=== PATIENT | male | born 1990 | race Asian ===

== ENCOUNTER 2017-05-27 15:46 | Emergency (ER) | payer SELFPAY ==
--- NOTE | 2017-05-27 18:53 | RAD ---
Indication: RIGHT ankle pain following twisting injury. Negative for deformity. Comparison: No relevant prior exams available on the [facility] [facility] [place]. Technique: AP, mortise, and lateral views RIGHT ankle. Report: Mild soft tissue swelling over the lateral malleolus. Negative for fracture or malalignment. Linear calcification at the level of the posterior crossing tendons and myotendinous junctions likely the flexor hallucis longus of doubtful acute significance. IMPRESSION: Lateral soft tissue swelling without fracture or malalignment. Consider lateral supporting ligament sprain.
[2017-05-27 20:11] VITALS: BP 137/72
--- NOTE | 2017-05-27 20:56 | ED ---
Lower Extremity - HPI Summary HPI Summary: Patient presents to the ED with CC of right ankle pain after falling earlier today. He has been ambulating but with pain. Limited communication d/t language barrier. He states he fell but is unsure how he landed. Denies hitting his head or LOC. Pain is located on the lateral portion of the right ankle and radiates to to the foot. Swelling noted. Denies numbness, tingling, temperature or color changes to the area.Pulses +2 bilaterally and cap refill < 2 sec. He is otherwise healthy and has been using ice for relief. Denies medication use. ROM limited d/t pain. Ambulating well, but with 4/10 pain. At rest, pain is 2/10. - History of Current Complaint Chief Complaint: EDExtremityLower Stated Complaint: RT ANKLE PAIN Time Seen by Provider: 05/27/17 18:20 Hx Obtained From: Patient Mechanism Of Injury: Twisted Onset of Pain: Immediate Onset/Duration: Hours Severity Initially: Mild Severity Currently: Mild Pain Intensity: 4 Pain Scale Used: 0-10 Numeric Timing: Constant Location: Is Discrete @ - right lateral ankle Character Of Pain: Aching Associated Signs And Symptoms: Positive: Swelling Aggravating Factor(s): Standing, Ambulation Alleviating Factor(s): Rest Able to Bear Weight: No - Risk Factors Gout Risk Factors: Negative DVT Risk Factors: Negative Septic Arthritis Risk Factor: Negative PMH/Surg Hx/FS Hx/Imm Hx Previously Healthy: Yes - Immunization History Hx Pertussis Vaccination: No Immunizations Up to Date: Yes Infectious Disease History: No Infectious Disease History: Denies: Traveled Outside the [place] in Last 30 Days - Social History Occupation: Employed Full-time Lives: With Family Alcohol Use: Rare Hx Substance Use: No Substance Use Type: Reports: None Smoking Status (MU): Never Smoked Tobacco Review of Systems Constitutional: Negative Negative: Fever, Chills, Fatigue Cardiovascular: Negative Respiratory: Negative Genitourinary: Negative Positive: no symptoms reported, see HPI Positive: Arthralgia - right ankle pain Positive: Other - swelling Neurological: Negative Psychological: Normal All Other Systems Reviewed And Are Negative: Yes Physical Exam - Summary Physical Exam Summary: Thorough physical exam was performed, focusing on ankle special tests. Pain on palpation over lateral aspect and superior aspect of ankle over ATFL and deltoid ligaments. No pain on palpation over medial side. Due to patient pain around injury, physical exam was limited. Unable to perform anterior drawer test or talar tilt test d/t pain. Duckworth test negative. Limited ROM. Dorsiflexion, great toe extension and plantar flexion intact however limited. No pain on palpation over medial or lateral lower extremity. No pain with knee flexion. Pulses intact bilaterally. No temperature change or pallor noted bilaterally. Ecchymosis and swelling noted on lateral aspect. No lesion or disruption of skin is seen. Unable to bear weight. Triage Information Reviewed: Yes Vital Signs On Initial Exam: Initial Vitals Temp Pulse Resp BP Pulse Ox 97.9 F 63 18 133/69 98 05/27/17 15:49 05/27/17 15:49 05/27/17 15:49 05/27/17 15:49 05/27/17 15:49 Vital Signs Reviewed: Yes Appearance: Positive: Well-Appearing, Well-Nourished Skin: Positive: Warm, Skin Color Reflects Adequate Perfusion Head/Face: Positive: Normal Head/Face Inspection Eyes: Positive: EOMI, DIANA, Conjunctiva Clear Neck: Positive: Supple, No Lymphadenopathy Respiratory/Lung Sounds: Positive: Clear to Auscultation, Breath Sounds Present Cardiovascular: Positive: Normal, RRR, Pulses are Symmetrical in both Upper and Lower Extremities Musculoskeletal: Positive: Pain @ - right lateral ankle pain Neurological: Positive: Sensory/Motor Intact, Alert, Oriented to Person Place, Time, Speech Normal Psychiatric: Positive: Normal - [place] Coma Scale Coma Scale Total: 15 Diagnostics - Vital Signs Vital Signs Temp Pulse Resp BP Pulse Ox 05/27/17 20:10 98.3 F 50 16 137/72 100 05/27/17 15:49 97.9 F 63 18 133/69 98 - Laboratory Lab Statement: Any lab studies that have been ordered have been reviewed, and results considered in the medical decision making process. Lower Extremity Course/Dx - Course Course Of Treatment: Based on [place]ner Ankle Rules, patient sent to imaging. Xray negative for fracture or other acute findings. Soft tissue swelling noted over the lateral aspect of the ankle. Medial and lateral distal lower extremity without pain and x-rays show no widening of the ankle joint regarding low suspicion for Maisonneuve fx. Ankle was froilan wrapped to patient comfort to allow for immobilization for this period of time. Gel splint applied. Encouraged Ibuprofen 600mg three times daily with meals for pain. Return precautions given. Educated patient regarding ankle injuries and healing time and the possibility of further evaluation and imaging as orthopedist sees fit. - Diagnoses Differential Diagnosis/HQI/PQRI: Positive: Sprain, Strain Provider Diagnoses: Right ankle sprain Discharge - Discharge Plan Condition: Stable Disposition: HOME Prescriptions: Ibuprofen TAB* [Motrin TAB* 600 MG] 600 mg PO Q8H PRN #30 tab PRN Reason: Pain Patient Education Materials: Ankle Sprain (ED) Referrals: No Primary Care Phys,NOPCP [Primary Care Provider] - Additional Instructions: Ibuprofen 600mg three times daily ICE ELEVATE ONLY STAND ON THE LEG TOLERATED
== END 2017-05-27 20:10 | disposition home or self-care (01) ==
LOC: ED 15:46
DX: S93.401A Sprain of unspecified ligament of right ankle, initial encounter (principal); W19.XXXA Unspecified fall, initial encounter; Y93.9 Activity, unspecified; Y92.9 Unspecified place or not applicable
CPT/HCPCS: 99282